=== PATIENT | female | born 1960 | race Caucasian/White ===

== ENCOUNTER → 2017-08-19 07:31 | Outpatient (CLI) | payer OTHER, SELFPAY ==
--- NOTE | 2017-08-19 07:36 | HPBI_ITS ---
MAMMOGRAPHY - BILATERAL SCREENING REASON FOR EXAM: Female, 57 years old. Routine annual screening examination. PERTINENT HISTORY: Non-contributory. TECHNIQUE: Digital bilateral breast song (3D mammographic acquisition) in the CC and MLO projections. 2-D mediolateral oblique (MLO) and craniocaudad (CC) views of both breasts were obtained. CAD: Full Field Digital Mammography with Computer Added Detection was performed. COMPARISON: Comparison is made with prior study dated July 04, 2016 and May 30, 2015. FINDINGS: Breast Composition: The breasts are heterogeneously dense, which may obscure small masses. There are no dominant masses or suspicious calcifications. Stable benign-appearing bilateral axillary lymph nodes. No other significant abnormalities are identified. There has been no significant change since the prior study. HPBI/SCREENING MAMM (CAD), BILAT IMPRESSION: Stable bilateral screening mammogram. Yearly follow-up mammogram recommended. (A) ASSESSMENT CATEGORY: BIRADS Category 2: Benign. A letter regarding these results will be sent to the patient by the facility within 30 days. Approximately 10% of breast cancers are not detected by mammography. A normal mammogram should not delay biopsy of a clinically suspicious abnormality. [id number] Electronically Signed: Charbel Narvaez MD at 8:56 EST Tel [phone], Service support ,
== END ==
PROVIDERS: Family Provider Family Medicine; PCP Family Medicine; Visit Provider Family Medicine
DX: Z12.31 Encounter for screening mammogram for malignant neoplasm of breast (principal)
CPT/HCPCS: 77063; 77067

== ENCOUNTER → 2017-08-20 11:53 | Outpatient (CLI) | payer OTHER, SELFPAY ==
--- NOTE | 2017-08-20 11:54 | CT_ITS ---
STUDY: CT ABDOMEN AND PELVIS WITHOUT CONTRAST REASON FOR EXAM: Female, 57 years old. Gross hematuria. RADIATION DOSAGE (If Supplied By Facility): CTDIvol = ( 8.18 ) mGy, DLP = ( 398.51 ) mGycm TECHNIQUE: Transaxial images were obtained from the dome of the diaphragm to the symphysis pubis without oral contrast, and without intravenous contrast. Sagittal and coronal images were reconstructed. Individualized dose optimization techniques were used for this CT. COMPARISON: Comparison is made with prior examination dated May 26, 2015. FINDINGS: The visualized lung bases are unremarkable. The visualized portions of the heart are within normal limits. There is a 9 mm cyst in the dome of the right lobe of the liver. Once again, there is evidence of a 9.4 cm x 7.6 cm x 9.2 cm solid mass with central lucency in the posterior aspect of the right lobe of the liver. This may represent either a large hemangioma or hepatic adenoma. This is unchanged. Normal gallbladder and extrahepatic biliary system. Normal spleen. Normal pancreas. Normal bilateral adrenal glands. Normal right kidney. Normal left kidney. Normal visualized stomach. Normal small intestine. Normal colon. The appendix is visualized and appears normal. Normal abdominal aorta. Normal inferior vena cava. Normal retroperitoneum. The urinary bladder is not completely distended although there is suggestion of a thickened wall of the urinary bladder. Clinical correlation is recommended. Normal abdominal wall. Normal osseous structures. CT/Abdomen/Pelvis without Cont IMPRESSION: Thickening of the urinary bladder wall. Cystitis should BE ruled out. Stable hepatic mass suggestive of a hemangioma or intrahepatic adenoma. Electronically Signed: Charbel Narvaez MD at 12:33 EST Tel [phone], Service support ,
== END ==
PROVIDERS: Family Provider Family Medicine; PCP Family Medicine; Visit Provider Family Medicine
DX: N32.9 Bladder disorder, unspecified (principal); R16.0 Hepatomegaly, not elsewhere classified; R31.9 Hematuria, unspecified; R10.9 Unspecified abdominal pain
CPT/HCPCS: 74176; 87086; 87088

== ENCOUNTER → 2017-08-28 07:02 | Outpatient (CLI) | payer OTHER, SELFPAY ==
[2017-08-28 10:10] LABS: Absolute Lymphocyte Count 1.26 X10^3/ul (0.83-4.51); Absolute Neutrophil Count 1.8 X10^3/uL (2.0-7.7); Basophil# 0.02 X10^3/uL; Basophil% 0.5 % (0-1); Eosinophil# 0.29 X10^3/uL; Eosinophils% 7.6 % (0-5); Hematocrit 39.9 % (37-47); Hemoglobin 13.2 g/dl (12.0-15.0); Lymphocyte # 1.26 X10^3/ul (4.0); Lymphocyte % 32.8 % (19-41); Mean Corp Hgb Conc 33.1 g/gl (32-36); Mean Corpuscular Hgb 31.1 pg (27.0-32.0); Mean Corpuscular Volume 94.1 fL (81-99); Mean Platelet Vol. 10.4 fl (6.2-12.0); Neutrophil # 1.76 X10^3/uL (2.7-7.7); Neutrophil % 45.8 % (47-70); Platelet Count 224 K/mm3 (150-450); RBC Distribution Width CV 13.2 % (11.6-14.6); RBC Distribution Width SD 45.3 fl (35.1-43.9); Red Blood Count 4.24 M/mm3 (4.2-5.4); White Blood Count 3.8 K/mm3 (4.4-11.0)
[2017-08-28 10:11] LABS: POSITIVE COUNT NO; POSITIVE DIFFERENTIAL NO; POSITIVE MORPHOLOGY NO
[2017-08-28 10:34] LABS: ALB/GLOB Ratio 1.2 RATIO (0.9-2.4); AST(SGOT) 16 U/L (15-37); Alanine Aminotransfer ALT/SGPT 34 U/L (13-56); Alkaline Phosphatase 82 U/L (45-117); Anion Gap 6 (5-15); BUN 22 mg/dL (7-18); BUN/Creat Ratio 29.2 RATIO (10-20); Chloride 104 mmol/L (98-107); Cholesterol 161 mg/dL (200); Creatinine, Serum 0.75 mg/dL (0.55-1.02); EST Glomerular Filtration Rate 84 mL/min (>60); Est Glom Filt Rate - Afr Amer 102 mL/min (>60); Globulin 3.4 g/dL (2.2-4.2); Glucose 91 mg/dL (74-106); High Density Lipoprotein 81 mg/dL; Potassium 4.3 mmol/L (3.5-5.1); Protein, Total 7.4 g/dL (6.4-8.2); Sodium Level 140 mmol/L (136-145); T4 Free Direct 1.03 ng/dL (0.76-1.46); Thyroid Stim Hormone (TSH) 1.26 uIU/mL (0.358-3.74); Triglycerides 60 mg/dL; Very Low Density Lipoprotein 12 mg/dL (5-40)
[2017-08-29 09:01] LABS: T3 Total - Triiodothyronine 0.93 ng/mL (0.6-1.81); Vitamin D,25 Hydroxy 45.5 ng/mL (19.95-100.01)
== END ==
PROVIDERS: Family Provider Family Medicine; PCP Family Medicine; Visit Provider Family Medicine
DX: Z13.220 Encounter for screening for lipoid disorders (principal); Z51.81 Encounter for therapeutic drug level monitoring; E55.9 Vitamin D deficiency, unspecified; R53.83 Other fatigue
CPT/HCPCS: 36415; 80053; 80061; 82306; 84439; 84443; 84480; 85025

== ENCOUNTER → 2017-09-29 07:09 | Outpatient (CLI) | payer OTHER, SELFPAY ==
--- NOTE | 2017-09-29 07:15 | CT_ITS ---
STUDY: CT ABDOMEN AND PELVIS WITH CONTRAST REASON FOR EXAM: Female, 57 years old. Microhematuria. History of kidney stones. RADIATION DOSAGE (If Supplied By Facility): CTDIvol = ( 16.38 ) mGy, DLP = ( 1428.26 ) mGycm TECHNIQUE: Transaxial images were obtained from the dome of the diaphragm to the symphysis pubis with oral contrast. 100CC ml of Isovue 300 contrast was administered. Sagittal and coronal images were reconstructed. Individualized dose optimization techniques were used for this CT. COMPARISON: Comparison is made with prior study dated August 20, 2017. FINDINGS: The visualized lung bases are unremarkable. The visualized portions of the heart are within normal limits. There is a 10 cm x 9 cm inhomogeneously enhancing mass in the posterior aspect of the right lobe of the liver involving a large portion of the right lobe. The enhancement is from the periphery and appears to be consistent with a large hemangioma. This was seen on prior examination. Stable 9 mm cyst in the dome of the right lobe of liver. Normal gallbladder and extrahepatic biliary system. Normal spleen. Normal pancreas. Normal bilateral adrenal glands. Normal right kidney. Normal left kidney. Normal visualized stomach. Normal small intestine. Normal colon. The appendix is visualized and appears normal. Normal abdominal aorta. Normal inferior vena cava. Normal retroperitoneum. Normal urinary bladder. Normal abdominal wall. Normal osseous structures. CT/Abdomen/Pelvis WITH Contrast IMPRESSION: Findings suggest a very large hemangioma in the liver as described. Stable small cyst in the right lobe. There is no evidence of a urinary tract obstruction. Electronically Signed: Charbel Narvaez MD at 10:08 EDT Tel [phone], Service support ,
== END ==
PROVIDERS: Family Provider Family Medicine; PCP Family Medicine; Visit Provider Nurse Practitioner Adult Health
DX: R31.9 Hematuria, unspecified (principal)
CPT/HCPCS: 74177; Q9967

== ENCOUNTER → 2017-09-30 17:31 | Outpatient (CLI) | payer OTHER, SELFPAY ==
--- NOTE | 2017-09-30 16:00 | FLU_PTH ---
PATIENT: FELTON TODD [facility] U[facility][id number] AGE/SX: 65/F ROOM: RE09/30/[address]: Dr. Fish Johnston MD : 1960 BED: DIS: SPEC #: [id number] RECD: 10/01/17 08:49 STATUS: DANIELLE GEOVANNI #: [id number] SARAH: 09/30/17 16:[address]: Fish Johnston DEPT: CYTOLOGY RECD BY: Barb Montalvo ENTERED: 10/01/17 08:59 SP TYPE: Fluid OTHR DR: Dr. Alanna Mancia, DO Tissues: Urine Procedures: Pap Stain (control) Special Stain Group II Surgery Specimen Level IV Cytospin Fluid HEADER OPERATION: Not noted PRE-OP DIAGNOSIS: Hematuria TISSUE SUBMITTED: Urine for cytology DIAGNOSIS CYTOLOGY Urine for cytology (cytospin): Negative for malignant cells. SJ:buffy 10/02/17 CYTOLOGY STUDY Slides are reviewed. The specimen predominantly consists of benign squamous cells, organisms consistent with bacteria, neutrophils and a few benign urothelial cells. CYTOLOGY GROSS Received is 45 ml of yellow clear fluid labeled with the patient's name and and designated per the requisition as urine. Submitted for cytology preparation. / ANITA:beryl 10/01/17 TC:5 CPT: 80464
[2017-09-30 17:32] LABS: Cytology, Body Fluid / CSF SEE PATHOLOGY REPORT
== END ==
PROVIDERS: Visit Provider Urology
DX: R31.9 Hematuria, unspecified (principal)
CPT/HCPCS: 88108; 88305; 88313

== ENCOUNTER → 2018-03-24 08:05 | Outpatient (CLI) | payer OTHER, SELFPAY ==
--- NOTE | 2018-03-24 08:05 | CYSPIN_PTH ---
PATIENT: FELTON TODD LOC: [facility] U#:[id number] AGE/SX: 65/F ROOM: RE03/24/[address]: ALVINA Hernandez : 1960 BED: DIS: SPEC #: [id number] RECD: 03/24/18 08:51 STATUS: DANIELLE GEOVANNI #: [id number] SARAH: 03/24/18 08:[address]: Libby Sotomayor NP DEPT: CYTOLOGY RECD BY: Haris Mckeon Tissues: Urine Procedures: Pap Stain (control) Special Stain Group II Cytospin Fluid HEADER OPERATION: Not noted PRE-OP DIAGNOSIS: Hematuria TISSUE SUBMITTED: Urine for cytology DIAGNOSIS CYTOLOGY Urine for cytology (cytospin): Negative for malignant cells. GAIL:buffy 03/25/18 COMMENT Please make reference to previous specimen ([id number]) urine for cytology with diagnosis of negative for malignant cells. CYTOLOGY STUDY Slides are reviewed. The specimen predominantly consists of benign squamous cells. CYTOLOGY GROSS Received is 35 ml of clear yellow fluid labeled with the patient's name and and designated per the requisition as urine. Submitted for cytology preparation. 03/24/18 TC:4 CPT: 04798
[2018-03-24 09:48] LABS: Cytology, Body Fluid / CSF SEE PATHOLOGY REPORT
== END ==
PROVIDERS: Visit Provider Nurse Practitioner Adult Health
DX: R31.9 Hematuria, unspecified (principal)
CPT/HCPCS: 88108; 88313

== ENCOUNTER → 2018-08-10 07:49 | Outpatient (CLI) | payer OTHER, SELFPAY ==
[2018-08-10 10:19] LABS: Absolute Lymphocyte Count 1.65 X10^3/ul (0.83-4.51); Absolute Neutrophil Count 1.8 X10^3/uL (2.0-7.7); Basophil# 0.03 X10^3/uL; Basophil% 0.7 % (0-1); Eosinophil# 0.23 X10^3/uL; Eosinophils% 5.4 % (0-5); Hematocrit 39.1 % (37-47); Hemoglobin 12.8 g/dl (12.0-15.0); Lymphocyte # 1.65 X10^3/ul (4.0); Lymphocyte % 38.8 % (19-41); Mean Corp Hgb Conc 32.7 g/gl (32-36); Mean Corpuscular Volume 94.7 fL (81-99); Mean Platelet Vol. 10.2 fl (6.2-12.0); Monocyte% 11.8 % (0-10); Neutrophil # 1.83 X10^3/uL (2.7-7.7); Neutrophil % 43.1 % (47-70); Platelet Count 238 K/mm3 (150-450); RBC Distribution Width CV 12.3 % (11.6-14.6); RBC Distribution Width SD 42.7 fl (35.1-43.9); Red Blood Count 4.13 M/mm3 (4.2-5.4); White Blood Count 4.3 K/mm3 (4.4-11.0)
[2018-08-10 10:28] LABS: POSITIVE COUNT NO; POSITIVE DIFFERENTIAL NO; POSITIVE MORPHOLOGY NO
[2018-08-10 10:51] LABS: AST(SGOT) 14 U/L (15-37); Alanine Aminotransfer ALT/SGPT 20 U/L (13-56); Albumin, Serum 3.6 g/dL (3.2-5.0); Alkaline Phosphatase 85 U/L (45-117); Anion Gap 6 (5-15); BUN 17 mg/dL (7-18); BUN/Creat Ratio 19.9 RATIO (10-20); Calcium,Total 8.9 mg/dL (8.5-10.1); Chloride 108 mmol/L (98-107); Cholesterol 128 mg/dL (200); Creatinine, Serum 0.86 mg/dL (0.55-1.02); EST Glomerular Filtration Rate 72 mL/min (>60); Est Glom Filt Rate - Afr Amer 88 mL/min (>60); Globulin 3.6 g/dL (2.2-4.2); Glucose 96 mg/dL (74-106); High Density Lipoprotein 52 mg/dL; Protein, Total 7.2 g/dL (6.4-8.2); Sodium Level 143 mmol/L (136-145); Triglycerides 61 mg/dL; Very Low Density Lipoprotein 12 mg/dL (5-40)
== END ==
PROVIDERS: Family Provider Family Medicine; PCP Family Medicine; Referring Provider Family Medicine; Visit Provider Family Medicine
DX: E78.5 Hyperlipidemia, unspecified (principal); Z51.81 Encounter for therapeutic drug level monitoring
CPT/HCPCS: 36415; 80053; 80061; 85025

== ENCOUNTER → 2018-09-14 07:14 | Outpatient (CLI) | payer OTHER, SELFPAY ==
--- NOTE | 2018-09-14 07:16 | BI_ITS ---
MAMMOGRAPHY - BILATERAL SCREENING REASON FOR EXAM: Female, 58 years old. Routine annual screening examination. PERTINENT HISTORY: Non-contributory. TECHNIQUE: Digital bilateral breast song (3D mammographic acquisition) in the CC and MLO projections. 2-D mediolateral oblique (MLO) and craniocaudad (CC) views of both breasts were obtained. CAD: Full Field Digital Mammography with Computer Added Detection was performed. COMPARISON: Comparison is made with prior examination if every 2017 and July 04, 2016. FINDINGS: Breast Composition: The breasts are heterogeneously dense, which may obscure small masses. Proximal asymmetrical nodular density in the upper lateral aspect of the right breast. Correlation with ultrasound is recommended. Stable appearance of the bilateral axillary lymph nodes. No other significant abnormalities are identified. BI/SCREENING MAMM (CAD), BILAT IMPRESSION: Asymmetrical density in the upper outer aspect of the right breast as described. Correlation with ultrasound is recommended. ASSESSMENT CATEGORY: BIRADS Category 0: Incomplete. Need additional imaging evaluation. A letter regarding these results will be sent to the patient by the facility within 30 days. Approximately 10% of breast cancers are not detected by mammography. A normal mammogram should not delay biopsy of a clinically suspicious abnormality. [id number] Electronically Signed: Charbel Narvaez, at 9:30 EST , Service support ,
== END ==
PROVIDERS: Family Provider Family Medicine; PCP Family Medicine; Referring Provider Family Medicine; Visit Provider Family Medicine
DX: Z12.31 Encounter for screening mammogram for malignant neoplasm of breast (principal); N63.11 Unspecified lump in the right breast, upper outer quadrant
CPT/HCPCS: 77063; 77067

== ENCOUNTER → 2018-09-18 15:23 | Outpatient (CLI) | payer OTHER, SELFPAY ==
--- NOTE | 2018-09-18 15:26 | US_ITS ---
STUDY: ULTRASOUND BREAST - RIGHT REASON FOR EXAM: Female, 58 years old. Abnormal screening mammogram. TECHNIQUE: Axial and longitudinal images of the RIGHT breast were performed with a high resolution ultrasound transducer. COMPARISON: Comparison is made with prior mammogram dated September 14, 2018. FINDINGS: RIGHT Breast: There is a 5 mm x 4 mm x 2 mm cyst at the 10:00 position of the breast at 1 cm from nipple. There is also evidence of a 7 mm x 9 mm x 5 mm hypoechoic mixed solid and cystic nodule at the 9:00 position of the breast at 1 cm from the nipple. A biopsy of this nodule is recommended for further evaluation. US/Breast Limited Unilateral IMPRESSION: Small cyst at the 10:00 position of the breast. 7 mm x 9 mm x 5 mm hypoechoic mixed solid and cystic nodule at the 9:00 position of the breast at 1 cm from the nipple. A biopsy recommended for further evaluation. ASSESSMENT CATEGORY: BIRADS Category 4: Suspicious - Biopsy Should Be Considered. A letter regarding these results will be sent to the patient by the facility within 30 days. Electronically Signed: Charbel Narvaez, at 8:38 EDT , Service support ,
== END ==
PROVIDERS: Family Provider Family Medicine; PCP Family Medicine; Referring Provider Family Medicine; Visit Provider Family Medicine
DX: R92.8 Other abnormal and inconclusive findings on diagnostic imaging of breast (principal)
CPT/HCPCS: 76642

== ENCOUNTER → 2019-04-13 13:11 | Outpatient (CLI) | payer OTHER, SELFPAY ==
--- NOTE | 2019-04-13 13:16 | BI_ITS ---
MAMMOGRAPHY - UNILATERAL DIAGNOSTIC: RIGHT BREAST REASON FOR EXAM: Female, 59 years old. Six-month follow-up examination following ultrasound-guided right breast biopsy. PERTINENT HISTORY: Non-contributory. TECHNIQUE: Digital unilateral breast vadim (3D mammographic acquisition) in the CC and MLO projections. 2-D mediolateral oblique (MLO) and craniocaudad (CC) views of both breasts were obtained. CAD: Full Field Digital Mammography with Computer Added Detection was performed. COMPARISON: Comparison is made with prior examination dated September 14, 2018 and August 19, 2017. FINDINGS: Breast Composition: The breasts are heterogeneously dense, which may obscure small masses. There are no dominant masses or suspicious calcifications. A tissue clip marker from prior abscess is seen in the lateral retroareolar region of the right breast. No other significant abnormalities are identified. There has been no significant change since the prior study. BI/Rt Brst Unilat Vadim Add-On IMPRESSION: Stable unilateral diagnostic mammogram. One year follow-up mammogram recommended. (A) ASSESSMENT CATEGORY: BIRADS Category 2: Benign. A letter regarding these results will be sent to the patient by the facility within 30 days. Approximately 10% of breast cancers are not detected by mammography. A normal mammogram should not delay biopsy of a clinically suspicious abnormality. Electronically Signed: Charbel Narvaez, at 14:39 EDT , Service support ,
--- NOTE | 2019-04-13 13:16 | US_ITS ---
STUDY: ULTRASOUND BREAST - RIGHT REASON FOR EXAM: Female, 59 years old. Six-month follow-up examination following right breast biopsy. TECHNIQUE: Axial and longitudinal images of the RIGHT breast were performed with a high resolution ultrasound transducer. COMPARISON: Comparison is made with prior ultrasound of the right breast dated September 18, 2018. FINDINGS: RIGHT Breast: Stable appearance of the subcentimeter hypoechoic solid nodules at the 10:00 and 9:00 position the breast about 1 cm from nipple. US/Breast Limited Unilateral IMPRESSION: Stable examination. ASSESSMENT CATEGORY: BIRADS Category 2: Benign. A letter regarding these results will be sent to the patient by the facility within 30 days. Electronically Signed: Charbel Narvaez, at 14:12 EDT , Service support ,
--- NOTE | 2019-04-13 13:16 | BI_ITS ---
MAMMOGRAPHY - UNILATERAL DIAGNOSTIC: RIGHT BREAST REASON FOR EXAM: Female, 59 years old. Six-month follow-up examination following ultrasound-guided right breast biopsy. PERTINENT HISTORY: Non-contributory. TECHNIQUE: Digital unilateral breast song (3D mammographic acquisition) in the CC and MLO projections. 2-D mediolateral oblique (MLO) and craniocaudad (CC) views of both breasts were obtained. CAD: Full Field Digital Mammography with Computer Added Detection was performed. COMPARISON: Comparison is made with prior examination dated September 14, 2018 and August 19, 2017. FINDINGS: Breast Composition: The breasts are heterogeneously dense, which may obscure small masses. There are no dominant masses or suspicious calcifications. A tissue clip marker from prior abscess is seen in the lateral retroareolar region of the right breast. No other significant abnormalities are identified. There has been no significant change since the prior study. BI/DIAG MAMM W/CAD, UNILAT IMPRESSION: Stable unilateral diagnostic mammogram. One year follow-up mammogram recommended. (A) ASSESSMENT CATEGORY: BIRADS Category 2: Benign. A letter regarding these results will be sent to the patient by the facility within 30 days. Approximately 10% of breast cancers are not detected by mammography. A normal mammogram should not delay biopsy of a clinically suspicious abnormality. Electronically Signed: Charbel Narvaez, at 14:39 EDT , Service support ,
== END ==
PROVIDERS: Family Provider Family Medicine; PCP Family Medicine; Referring Provider Surgery; Visit Provider Surgery
DX: R92.8 Other abnormal and inconclusive findings on diagnostic imaging of breast (principal)
CPT/HCPCS: 76642; 77061; 77065; G0279

== ENCOUNTER → 2019-12-22 09:32 | Outpatient (CLI) | payer OTHER, SELFPAY ==
[2019-12-22 12:47] LABS: Iron 70 ug/dL (50-170)
[2019-12-22 12:53] LABS: Vitamin B12 381 pg/mL (211-911)
== END ==
PROVIDERS: PCP Family Medicine; Visit Provider Family Medicine
DX: D64.9 Anemia, unspecified (principal); R53.83 Other fatigue
CPT/HCPCS: 36415; 82607; 83540

== ENCOUNTER → 2020-02-07 | Outpatient (CLI) | payer OTHER, SELFPAY ==
--- NOTE | 2020-02-07 | CYSPIN_PTH ---
PATIENT: FELTON TODD [facility] U[facility][id number] AGE/SX: 59/F ROOM: RE02/07/[address]: Dr. Samantha Monroy MD : 1960 BED: DIS: 02/07/2020 SPEC #: [id number] RECD: 02/08/20 13:54 STATUS: DANIELLE REJoseph #: [id number] SARAH: 02/07/20 00:[address]: Samantha Monroy DEPT: CYTOLOGY RECD BY: Naveed Branham ENTERED: 02/08/20 13:54 SP TYPE: CYSPIN FL OTHR DR: Dr. Alanna Mancia, DO Tissues: Urine Procedures: Pap Stain (control) Special Stain Group II Cytospin Fluid HEADER OPERATION: Not noted PRE-OP DIAGNOSIS: Hematuria TISSUE SUBMITTED: Urine for cytology DIAGNOSIS CYTOLOGY Urine for cytology (cytospin): Negative for malignant cells. See comment. AM:buffy 02/09/20 COMMENT The specimen primarily contains squamous epithelial cells. Clinical correlation is suggested. CYTOLOGY STUDY Slides are reviewed. CYTOLOGY GROSS Received is 3 ml of yellow cloudy fluid labeled with the patient's name and and designated per the requisition as urine. Submitted for cytology preparation. / buffy 02/08/20 TC:5 CPT: 81820
[2020-02-07 17:51] LABS: Cytology, Body Fluid / CSF SEE PATHOLOGY REPORT
== END | disposition home or self-care (01) ==
PROVIDERS: PCP Family Medicine; Referring Provider Urology; Visit Provider Urology
DX: R31.9 Hematuria, unspecified (principal)
CPT/HCPCS: 88108; 88313

== ENCOUNTER → 2020-02-14 14:43 | Outpatient (CLI) | payer OTHER, SELFPAY ==
--- NOTE | 2020-02-14 14:48 | CT_ITS ---
STUDY: CT ABDOMEN AND PELVIS WITH AND WITHOUT CONTRAST REASON FOR EXAM: Female, 59 years old. Gross hematuria intermittently for months. History of kidney stones requiring lithotripsy. RADIATION DOSAGE (If Supplied By Facility): CTDIvol = ( 14.0225 ) mGy, DLP = ( 2067.95 ) mGycm TECHNIQUE: Transaxial images were obtained from the dome of the diaphragm to the symphysis pubis without oral contrast. IV 100ML ISOVUE 300 was administered. Sagittal and coronal images were reconstructed. Individualized dose optimization techniques were used for this CT. COMPARISON: 09/29/2017. FINDINGS: The visualized lung bases are unremarkable. The heart is borderline enlarged but otherwise unremarkable. There is a large low attenuation lesion in segment 7 of the liver measuring 9.3 x 8 x 6.9 cm. This demonstrate patchy peripheral enhancement as well as irregular central low attenuation area. Question hemangioma versus FNH versus adenoma. The possibility of malignancy is a lesser consideration. There are also multiple small cysts in the liver. Normal gallbladder and extrahepatic biliary system. Normal spleen. Normal pancreas. Normal bilateral adrenal glands. Normal right kidney. Normal visualized right ureter. The left kidney is of normal size and cortical enhancement. There is a 5 mm cyst in the upper pole. There is a 2 mm nonobstructing calculus in upper pole calyx. There is a 5 mm nonobstructing stone lower pole calyx. There is no hydronephrosis there is mild thickening of the wall of the renal pelvis and proximal ureter. The distal ureter is unremarkable. Normal visualized stomach. Normal small intestine. Normal colon. The appendix is visualized and appears normal. Normal abdominal aorta. Normal inferior vena cava. Normal retroperitoneum. Normal urinary bladder. Normal uterus. Small calcification in the right adnexal region. There is no ovarian mass. No pelvic lymphadenopathy. No free air or free fluid is seen within the peritoneal cavity. Multiple phleboliths are seen about the vaginal vault. Normal abdominal wall. There are diffuse degenerative changes of the visualized lumbar spine. CT/CT Abd/Pelvis W/WO Contrast IMPRESSION: 1. 2 nonobstructing calculi in the left kidney not previously seen. There is mild thickening of the wall of the renal pelvis and proximal ureter. The possibility of infection cannot be completely ruled out although no parenchymal changes are noted. 2. Stable mass in the right liver. This is most likely a large hemangioma. 3. Stable left renal and hepatic cysts. 4. No other evidence of abdominal or pelvic abnormality. Electronically Signed: Ronnie Vaughn DO at 16:11 EDT Tel [phone], Service support ,
== END ==
PROVIDERS: PCP Family Medicine; Referring Provider Urology; Visit Provider Urology
DX: R31.0 Gross hematuria (principal)
CPT/HCPCS: 74178; Q9967

== ENCOUNTER 2020-03-09 05:56 | Day surgery (SDC) | payer OTHER, SELFPAY ==
[2020-03-09] VITALS (9 sets, daily range): BP systolic 110–139; BP diastolic 65–96; PULSE 42–69; RESP 15–16; TEMP 36.1–36.6; O2SAT 92–96; BMI 28.9
--- NOTE | 2020-03-09 | FLU_PTH ---
PATIENT: FELTON TODD LOC: [facility] [place] U[place][id number] AGE/SX: 59/F ROOM: RE03/09/[address]: Dr. Samantha Monroy MD : 1960 BED: DIS: 03/09/2020 SPEC #: [id number] RECD: 03/09/20 09:09 STATUS: DANIELLE GEOVANNI #: [id number] SARAH: 03/09/20 00:[address]: Samantha Monroy DEPT: CYTOLOGY RECD BY: Barb Montalvo ENTERED: 03/09/20 11:37 SP TYPE: Fluid OTHR DR: Dr. Alanna Mancia, DO Tissues: Pelvis, NOS Procedures: Special Stain Group II Surgery Specimen Level IV Cytospin Fluid HEADER OPERATION: Retrograde ureteroscopy, laser lithotripsy PRE-OP DIAGNOSIS: Left renal calculus, thickening renal pelvis TISSUE SUBMITTED: Left renal pelvis cytology DIAGNOSIS CYTOLOGY Left renal pelvis fluid for cytology (cytospin and cell block): Urothelial cells in clusters with mild atypia. See comment. AM:buffy 03/10/20 COMMENT Clinical correlation is suggested. CYTOLOGY STUDY Slides are reviewed. CYTOLOGY GROSS Received is 10 ml of red cloudy fluid labeled with the patient's name and and designated per the requisition as left renal pelvis. Submitted for cytology preparation including cell block. / buffy 03/09/20 TC:? CPT: 85924, 10319
[2020-03-09] MEDS: Lactated Ringers 1,000 ML 100 ML IV ×2 (06:51→09:19)
[2020-03-09] MEDS: Cefazolin 2 GM in 0.9% Normal Saline 100 ML IV (07:29)
--- NOTE | 2020-03-09 07:30 | CALC_PTH ---
PATIENT: FELTON TODD LOC: [facility] [place] U#:[id number] AGE/SX: 59/F ROOM: RE03/09/[address]: Dr. Samantha Monroy MD : 1960 BED: DIS: 03/09/2020 SPEC #: [id number] RECD: 03/09/20 09:09 STATUS: DANIELLE SANTOSJoseph #: [id number] SARAH: 03/09/20 07:[address]: Samantha Monroy DEPT: SURGICAL PATHOLOGY RECD BY: Barb Montalvo ENTERED: 03/09/20 11:47 SP TYPE: Calculi OTHR DR: Dr. Alanna Mancia DO Tissues: CALCULI Procedures: Surgery Specimen Level I HEADER OPERATION: Cysto, retrograde, ureteroscopy, laser lithotripsy PRE-OP DIAGNOSIS: Left renal calculus, thickening renal pelvis TISSUE SUBMITTED: Calculi for analysis GROSS DIAGNOSIS Calculus for analysis: Fragments of unremarkable calculi (gross diagnosis only). AM:buffy 03/10/20 COMMENT The calculus is submitted in its entirety for chemical stone analysis. The results from this study will be reported separately. GROSS DESCRIPTION Received in one container labeled with the patient's name and designated calculi for analysis. The specimen consists of multiple fragments of bush-brown stone that in aggregate measure 0.5 x 0.5 x 0.1 cm. The entire specimen is submitted for stone analysis. / SJ:buffy 03/09/20 CPT: 97588
--- NOTE | 2020-03-09 07:34 | PCM.OPRPT ---
Problem List (1) Left renal stone Status: Acute Report of Operation Date of Procedure: 03/09/20 Pre-Operative Diagnosis: left renal calculus, abnormal findings on CT renal pelvis and ureter Post-Operative Diagnosis: Same Surgery/Procedure Performed:: Cystoscopy, left retrograde pyelogram, left ureteroscopy, holmium laser lithotripsy, stone basket extraction, left ureteral stent insertion Type of Anesthesia:: General Specimen's removed: Stone fragments and urine cytology from the left renal pelvis Estimated Blood Loss (mL): 5cc Description of Procedure: Patient is a 59-year-old female being evaluated for hematuria. She was identified as having 2 left renal Stones with thickening of the renal pelvis and proximal ureter. After discussing the risk benefits and alternatives she agreed to proceed with surgical intervention. The discussion of risks also included discussion of COVID-19. Patient was taken to the operating room and placed on the operating room table. Anesthesia monitored the head, neck, airway, IV access and vital signs throughout the case. Once anesthesia was probably administered the patient was placed into dorsal lithotomy position and was prepped and draped in usual sterile fashion. A cystourethroscopy was performed through the urethra. The bladder mucosa was visualized in its entirety and found to be free of any areas of erythema, ulceration, foreign body, or mass. The left ureteral orifice was intubated gently with an 8 Bahamian cone-tip catheter. In retrograde fashion contrast was injected under fluoroscopic visualization. There was no filling defect or dilation of the ureter. In the lower pole a stone was identified. The calyces remain sharp throughout the entire upper collecting system. At this time 2 separate 0.035 glide wires were placed into the left renal pelvis through the ureter. 1 of these wires remained as a safety wire and the second was used for insertion of a ureteral reaccessed sheath. This was inserted over the wire under fluoroscopic visualization and was done without difficulty. At this time ureteroscopy with the flexible scope was performed through the reaccessed sheath. Upon entry through the ureter and into the renal pelvis no abnormality of mucosa was identified. There was bleeding from the upper pole where the wire hit the calyx. In the lower pole and approximately 6 to 7 mm stone was identified. It was lasered into small fragments and removed with an N gauge basket. In the upper pole a 2 to 3 mm stone was identified. It was also lasered and fragments were removed. Sterile saline was then placed through the ureteroscope using a syringe and fluid was withdrawn for cytology. The ureteroscope was then removed with the ureteral access sheath and the ureter was directly observed throughout its entire length. There were no injuries to the ureter or renal pelvis. At this time the indwelling safety wire was used for placing a 6 Bahamian 24 cm double-J stent. Good curling was achieved in the renal pelvis as well as the urinary bladder. The patient's bladder was then emptied and the case was terminated. Specimens sent were stone fragments and urine for cytology. Grafts/Implants Used: 6x24 JJ stent - Complications none - Admit VTE Documentation VTE Present on Admission: Yes VTE Mechan Device Prophylaxis: SCD's VTE Pharm Prophylaxis ordered?: No Reason prophylaxis not ordered:: Treatment Not Indicated
--- NOTE | 2020-03-09 07:39 | DCINST_ITS ---
Discharge Diet: No Restrictions Discharge Activity: Return to Normal Activity, May not drive while taking narcotic pain medications. May resume sexual activity in: No Restrictions Call your doctor if you observe: Fever of 101 or Higher, Inability to urinate, Inability to have a bowel movement, Calf discomfort, Uncontrolled pain Allergies/Adverse Reactions: Allergies No Known Allergies Allergy (Verified 03/09/20 06:38) Medications to take at Discharge Olmesartan Medoxomil [Benicar] 20 mg PO QHS 06/14/15 Calcium Carbonate [Calcium] 5 % PO DAILY 02/29/20 Doxycycline 100 mg PO QHS 02/29/20 Ergocalciferol (Vitamin D2) [Vitamin D2] 10,000 unit PO QHS 02/29/20 Stinnett-3 Fatty Acids/Fish Oil [Stinnett 3 Fish Oil Softgel] 1 ea PO BID 02/29/20 Turmeric Root Extract [Turmeric Curcumin] 2 cap PO BID 02/29/20 Cephalexin [Keflex] 500 mg PO Q12 3 Days #6 cap 03/09/20 Oxycodone HCl/Acetaminophen [Percocet 5/325] 2 tablet PO Q8H PRN PRN 7 Days #20 tablet 03/09/20 Phenazopyridine HCl [Pyridium] 200 mg PO TID PRN PRN 7 Days #30 tab 03/09/20 The following prescriptions were given: Cephalexin [Keflex] 500 mg PO Q12 3 Days #6 cap Transmission Status: Pending to [address] Oxycodone HCl/Acetaminophen [Percocet 5/325] 2 tablet PO Q8H PRN PRN 7 Days #20 tablet PRN Reason: Pain Transmission Status: Received by [address] Phenazopyridine HCl [Pyridium] 200 mg PO TID PRN PRN 7 Days #30 tab PRN Reason: Bladder Spasms Transmission Status: Pending to [address] Primary Care Physician: Alanna Mancia DO [Primary Care Provider] - Test Results: Test results from this visit will be discussed in further detail at your follow- up appointment, if applicable. Please Follow Up With: Samantha Monroy MD When: call office for appt Proposed Discharge Date: 03/09/20
[2020-03-09] MEDS: Lubricating Jelly 60 GM Tube 30 GM TOPICAL (07:46)
[2020-03-09 09:31] LABS: Cytology, Body Fluid / CSF SEE PATHOLOGY REPORT
[2020-03-09] MEDS: oxyCODONE 5 MG Tablet 10 MG PO (10:50)
[2020-03-09] MEDS: Acetaminophen 325 MG Tablet 650 MG PO (10:50)
== END 2020-03-09 11:15 | disposition home or self-care (01) ==
LOC: SDC 05:58 → AC 05:58
PROVIDERS: Anesthesiology; PCP Family Medicine; Referring Provider Urology; Visit Provider Urology
PROC: 0TJ98ZZ Inspection of Ureter, Via Natural or Artificial Opening Endoscopic (ICD-10-PCS; CPT 52352; principal; 2020-03-09 07:20)
DX: N20.0 Calculus of kidney (principal); R93.41 Abnormal radiologic findings on diagnostic imaging of renal pelvis, ureter, or bladder; N95.2 Postmenopausal atrophic vaginitis; N94.10 Unspecified dyspareunia; R31.0 Gross hematuria; R35.1 Nocturia; I10 Essential (primary) hypertension; E55.9 Vitamin D deficiency, unspecified; Z87.442 Personal history of urinary calculi; Z79.899 Other long term (current) drug therapy; Z20.828 Contact with and (suspected) exposure to other viral communicable diseases
CPT/HCPCS: 00918; 52356; 76000; 82360; 87635; 88108; 88300; 88305; 88313; 94799; C9803; J7120; C2617; J2405; U0003

== ENCOUNTER → 2020-04-14 15:49 | Outpatient (CLI) | payer OTHER, SELFPAY ==
[2020-03-09 06:43] VITALS: BMI 28.9
[2020-04-14 17:52] LABS: Calcium,Total 8.9 mg/dL (8.5-10.1)
== END ==
PROVIDERS: PCP Family Medicine; Referring Provider Urology; Visit Provider Urology
DX: N20.0 Calculus of kidney (principal)
CPT/HCPCS: 36415; 82310

== ENCOUNTER → 2020-04-17 16:56 | Outpatient (CLI) | payer OTHER, SELFPAY ==
[2020-03-09 06:43] VITALS: BMI 28.9
--- NOTE | 2020-04-17 | FLU_PTH ---
PATIENT: FELTON TODD LOC: [facility] U#:[id number] AGE/SX: 65/F ROOM: RE04/17/[address]: Dr. Samantha Monroy MD : 1960 BED: DIS: SPEC #: [id number] RECD: 04/17/20 15:20 STATUS: DANIELLE GEOVANNI #: [id number] SARAH: 04/17/20 00:[address]: Samantha Monroy DEPT: CYTOLOGY RECD BY: Barb Montalvo ENTERED: 04/18/20 07:07 SP TYPE: Fluid OTHR DR: Dr. Alanna Mancia, DO Tissues: Urine Procedures: Special Stain Group II Cytospin Fluid HEADER OPERATION: Not noted PRE-OP DIAGNOSIS: Hematuria TISSUE SUBMITTED: Urine for cytology DIAGNOSIS CYTOLOGY Urine for cytology (cytospin): Negative for malignant cells. See comment. AM:buffy 04/19/20 COMMENT The specimen primarily contains benign squamous epithelial cells. Clinical correlation is suggested. CYTOLOGY STUDY Slides are reviewed. CYTOLOGY GROSS Received is 12 ml of pale yellow cloudy fluid labeled with the patient's name and and designated per the requisition as urine. Submitted for cytology preparation. / ubffy 04/18/20 TC:5 CPT: 36921
[2020-04-17 16:59] LABS: Cytology, Body Fluid / CSF SEE PATHOLOGY REPORT
== END ==
PROVIDERS: PCP Family Medicine; Referring Provider Urology; Visit Provider Urology
DX: R31.9 Hematuria, unspecified (principal)
CPT/HCPCS: 88108; 88313

== ENCOUNTER → 2020-04-21 15:12 | Outpatient (CLI) | payer OTHER, SELFPAY ==
[2020-03-09 06:43] VITALS: BMI 28.9
--- NOTE | 2020-04-21 15:14 | BI_ITS ---
MAMMOGRAPHY - BILATERAL SCREENING REASON FOR EXAM: Female, 60 years old. Routine annual screening examination. PERTINENT HISTORY: Non-contributory. Remote right excisional breast biopsy. TECHNIQUE: Digital bilateral breast samy (3D mammographic acquisition) in the CC and MLO projections. 2-D mediolateral oblique (MLO) and craniocaudad (CC) views of both breasts were obtained. CAD: Full Field Digital Mammography with Computer Added Detection was performed. COMPARISON: Comparison is made with prior examination dated 09/14/2018 and 08/19/2017. FINDINGS: Breast Composition: The breasts are heterogeneously dense, which may obscure small masses. There are no dominant masses or suspicious calcifications. A tissue clip marker is seen in the central slightly lateral aspect of the right breast. Stable small benign appearing bilateral axillary lymph nodes. No other significant abnormalities are identified. There has been no significant change since the prior study. BI/SCREEN MAMM (CAD) W/SAMY BILAT IMPRESSION: Stable bilateral screening mammogram. Yearly follow-up mammogram recommended. (A) ASSESSMENT CATEGORY: BIRADS Category 2: Benign. A letter regarding these results will be sent to the patient by the facility within 30 days. Approximately 10% of breast cancers are not detected by mammography. A normal mammogram should not delay biopsy of a clinically suspicious abnormality. [id number] Electronically Signed: Charbel Narvaez, at 14:58 EDT , Service support ,
== END ==
PROVIDERS: PCP Family Medicine; Referring Provider Family Medicine; Visit Provider Family Medicine
DX: Z12.31 Encounter for screening mammogram for malignant neoplasm of breast (principal)
CPT/HCPCS: 77063; 77067

== ENCOUNTER → 2020-06-21 12:55 | Outpatient (CLI) | payer OTHER, SELFPAY ==
[2020-03-09 06:43] VITALS: BMI 28.9
--- NOTE | 2020-06-21 12:58 | CT_ITS ---
STUDY: CT ABDOMEN AND PELVIS WITH AND WITHOUT CONTRAST REASON FOR EXAM: Female, 60 years old. HEMATURIA. Pt had kidney stone removed and stent x 3 days 2 months ago. RADIATION DOSAGE (If Supplied By Facility): CTDIvol = ( 13.98 ) mGy, DLP = ( 2529.07 ) mGycm TECHNIQUE: Transaxial images were obtained from the dome of the diaphragm to the symphysis pubis without oral contrast. IV 100mL Isovue-300 was administered. Sagittal and coronal images were reconstructed. Individualized dose optimization techniques were used for this CT. COMPARISON: Comparison is made with prior study dated 02/14/2020 and 09/29/2017. FINDINGS: The visualized lung bases are unremarkable. The visualized portions of the heart are within normal limits. There is a 7.5 cm x 8.5 cm x 8.2 cm heterogeneous nodule with peripheral filling suggestive of a large complex hemangioma. This is essentially unchanged. Stable 1 cm cyst in the region of the caudate lobe of the liver. Normal gallbladder and extrahepatic biliary system. Normal spleen. Normal pancreas. Normal bilateral adrenal glands. Normal right kidney. The previously seen nonobstructive calculus in the upper pole calyx of the left kidney is not seen at this time. The previously seen 5 mm nonobstructive plaque is in the lower pole OF the left kidney is not present at this time. Normal visualized stomach. Normal small intestine. Normal colon. The appendix is visualized and appears normal. Normal abdominal aorta. Normal inferior vena cava. Normal retroperitoneum. Normal urinary bladder. Normal abdominal wall. Stable sclerosis along the inferior aspect of the L2 vertebrae. Degenerative changes of the right sacroiliac joint. CT/CT Abd/Pelvis W/WO Contrast IMPRESSION: The previously seen small nonobstructive bilateral intrarenal calculi are not seen at this time. Stable appearance of the heterogeneous nodule in the right lobe of the liver suggestive of an hemangioma. Electronically Signed: Charbel Narvaez, at 13:43 EST , Service support ,
[2020-06-21 15:00] LABS: CREATININE FINGERSTICK 1.2 mg/dL (0.55-1.02)
== END ==
PROVIDERS: PCP Family Medicine; Referring Provider Urology; Visit Provider Urology
DX: R31.9 Hematuria, unspecified (principal); R93.49 Abnormal radiologic findings on diagnostic imaging of other urinary organs
CPT/HCPCS: 74178; Q9967

== ENCOUNTER → 2021-04-16 12:31 | Outpatient (CLI) | payer OTHER, SELFPAY ==
--- NOTE | 2021-04-16 12:35 | RAD_ITS ---
INDICATION: STONES EXAMINATION/TECHNIQUE: X-RAY - XR Abdomen 1 View COMPARISON: 06/21/2020 FINDINGS: Stool-filled loops of large bowel visualized superimposed over the renal beds limiting evaluation, no evidence of calcifications to suggest stones. Small and large bowel loops are within normal limits. Mild prominence of the length of the liver is visualized measuring approximately 25.9 cm No evidence of abdominal masses. Limited evaluation of the lower lung ross demonstrates unremarkable bronchovascular markings however there is suggestion of moderate cardiomegaly. Mild rotatory levoscoliosis of the lumbar spine visualized with the apex along the left lateral aspect of the L1-2 intervertebral disc space. RAD/Abdomen Single View IMPRESSION: Limited evaluation of the renal beds, no prominent stone seen. Electronically Signed: Rocky Arvizu MD at 15:37 EDT Tel , Service support ,
== END ==
PROVIDERS: PCP Family Medicine; Referring Provider Urology; Visit Provider Urology
DX: N20.0 Calculus of kidney (principal)
CPT/HCPCS: 74018

== ENCOUNTER 2021-07-17 14:46 | Outpatient (CLI) | payer OTHER, SELFPAY ==
--- NOTE | 2021-07-17 14:54 | CT_ITS ---
STUDY: CT ABDOMEN AND PELVIS WITH AND WITHOUT CONTRAST REASON FOR EXAM: Female, 61 years old. GROSS HEMATURIA RADIATION DOSAGE (If Supplied By Facility): CTDIvol = ( 21.97 ) mGy, DLP = ( 3435.87 ) mGycm TECHNIQUE: Transaxial images were obtained from the dome of the diaphragm to the symphysis pubis without oral contrast. IV 100mL Isovue-370 was administered. Sagittal and coronal images were reconstructed. Individualized dose optimization techniques were used for this CT. COMPARISON: 06/21/2020 FINDINGS: The visualized lung bases are unremarkable. The visualized portions of the heart are within normal limits. Liver is homogeneous with stable scattered simple cysts and a stable large 7.5 x 8.5 x 8.2 cm hemangioma. The enhancement pattern of this enhancing lesion within the right lobe of the liver is consistent with hemangioma. Normal gallbladder and extrahepatic biliary system. Normal spleen. Normal pancreas. Normal bilateral adrenal glands. No obstructive uropathy, stable simple 1 cm left renal cyst. There is a small hiatal hernia. Normal small intestine. Normal colon. The appendix is visualized and appears normal. Appendix seen on coronal recon images 41 through 51 Normal abdominal aorta. Normal inferior vena cava. Normal retroperitoneum. Normal urinary bladder. Uterus is present, the endometrium cannot be accurately evaluated with CT. From the periphery of the uterus there are serpiginous vessels suggesting pelvic congestion. Normal abdominal wall. Normal osseous structures. CT/CT Abd/Pelvis W/WO Contrast IMPRESSION: No obstructive uropathy, simple left renal cyst. No specific follow-up needed Stable simple hepatic cysts, stable large hemangioma in the right lobe of the liver. No specific follow-up needed. Normal appendix visualized Uterus is present, the endometrium cannot be accurately evaluated with CT. There are serpiginous vessels along the periphery of the uterus suggesting pelvic congestion. No free intraperitoneal fluid, air, or suspicious adenopathy Electronically Signed: David Chavez MD at 16:00 EST , Service support ,
[2021-07-17 15:25] LABS: CREATININE FINGERSTICK 0.9 mg/dL (0.55-1.02); EGFR FINGERSTICK > 60.0000 mL/min (>60)
== END 2021-07-17 23:59 | disposition short-term general hospital (02) ==
LOC: CT 14:52
PROVIDERS: PCP Family Medicine; Referring Provider Urology; Visit Provider Urology
DX: R31.0 Gross hematuria (principal); R10.30 Lower abdominal pain, unspecified
CPT/HCPCS: 74178; Q9967

== ENCOUNTER 2021-08-21 07:25 | Outpatient (CLI) | payer OTHER, SELFPAY ==
--- NOTE | 2021-08-21 07:30 | US_ITS ---
STUDY: ULTRASOUND OF THE FEMALE PELVIS - COMPLETE REASON FOR EXAM: Female, 61 years old. Postmenopausal bleeding. LMP: Patient is postmenopausal. TECHNIQUE: Transabdominal TECHNICAL QUALITY: Adequate. COMPARISON: None. FINDINGS: The uterus is anteverted and is in a midline position. The uterus measures 8.2 cm x 5.9 cm x 3.5 cm. Normal uterine cervix. The endometrium is slightly thickened and measures 4 mm in thickness, and is hyperechoic. There is no demonstrated endometrial mass. 2 uterine fibroids are seen. The larger fibroid measures 2.2 cm x 1.9 signs by 1.9 cm. I.U.D. - The patient does not have an I.U.D. The right ovary is visualized. The right ovary measures 3.1 cm x 1.9 cm x 2.4 cm. There is no right ovarian cyst or ovarian mass. A dominant follicle is seen within the right ovary measuring 1.7 cm x 1.3 cm x 1.3 cm. There is normal arterial and normal venous vascularity. The left ovary is visualized. The left ovary measures 3.3 cm x 2.5 cm x 1.5 cm. There is no left ovarian cyst or ovarian mass. There is no visualized left adnexal mass or complex lesion. There is normal arterial and normal venous vascularity. There is no fluid in the cul-de-sac. The pre void volume of the bladder was 284 ml. US/Pelvic (Non ) IMPRESSION: Slightly thickened endometrium. 2 uterine fibroids. Dominant follicle in the right ovary. Electronically Signed: Charbel Narvaez MD at 9:12 EST ,
== END 2021-08-21 23:59 | disposition home or self-care (01) ==
LOC: US 07:29
PROVIDERS: PCP Internal Medicine; Referring Provider Urology; Visit Provider Urology
DX: N93.9 Abnormal uterine and vaginal bleeding, unspecified (principal)
CPT/HCPCS: 76856